=== PATIENT | male | born 1950 | race Caucasian/White ===

== ENCOUNTER 2017-06-07 08:57 | Day surgery (SDC) | payer MEDICARE ==
[~2017-06-07] VITALS: Ht 182.9 cm; Wt 109.5 kg
[~2017-06-07 08:57] MED LIST: ASPI-84 PO; ASPI-999 PO; ATEN25TA; CYCL10TA9 PO; ENAL10TA PO; ENXP40I.4 SC; HYDR-1231 PO; HYDR-3454 PO; HYDR1TAB PO; IBUP-15; NEBI2.5T5 PO; NEBI5TAB8 PO; PANT20TA2; PANT40TA PO; PANT40TA3 PO; PNT40TEC PO; PRED20TA PO; SIMV40TA4 PO; WARF-48 PO; WARF5TAB6 PO; WARF7.5T; WRF5T; WRF5T PO
[2017-06-07] MEDS ORDERED: DEXAMETHASONE 10 MG/ML (DECADRON) 1 ML VIAL ONE (08:59)
[2017-06-07] MEDS ORDERED: BUPIVACAINE 0.5% 30 ML (SENSORCAINE) VIAL ONE (08:59)
[2017-06-07] MEDS ORDERED: LIDOCAINE 1% INJ 20 ML (XYLOCAINE) VIAL ONE (08:59)
[2017-06-07] MEDS ORDERED: MIDAZOLAM 2 MG/2 ML (VERSED) VIAL ONE (09:07)
[2017-06-07] MEDS ORDERED: ONDANSETRON 4 MG/2 ML (SDV) Z0FRAN ONE (09:07)
[2017-06-07] MEDS ORDERED: LIDOCAINE JELLY 2% (XYLOCAINE) 5 ML TUBE ONE (09:07)
[2017-06-07] MEDS ORDERED: LIDOCAINE PF 2% 5 ML (XYLOCAINE) VIAL ONE (09:07)
[2017-06-07] MEDS ORDERED: LACTATED RINGERS 0 ML IV ONE (09:07)
[2017-06-07] MEDS ORDERED: proPOfol 200 MG/20 ML (DIPRIVAN) VIAL IV ONE (09:07)
[2017-06-07] MEDS ORDERED: ROCURONIUM 50 MG/5 ML (ZEMURON) VIAL IV ONE (09:07)
[2017-06-07 09:15] VITALS: BP 162/87
[2017-06-07] MEDS: LACTATED RINGERS 1,000 ML IV PRN ×2 (09:15→10:10)
[2017-06-07] MEDS ORDERED: ceFAZolin 1 GM/NS 50 ML IVPB IV ONE ×2 (09:15)
[2017-06-07] MEDS ORDERED: CATHETER FLUSH 10 ML SYR IV PRN (09:15)
[2017-06-07] MEDS ORDERED: fentaNYL INJECTION 100 MCG/2 ML AMP ONE (09:33)
[2017-06-07 09:40] LABS: INR 1.2 (0.8-1.4); PROTHROMBIN TIME PATIENT 14.9 SEC (12.2-14.7)
--- NOTE | 2017-06-07 09:41 | Progress Note-Pre Operative ---
Pre-Operative Progress Note H&P Reviewed The H&P was reviewed, patient examined and no changes noted. Date Seen by Provider: Jun 07, 2017 Time Seen by Provider: 09:30 Date H&P Reviewed: Jun 07, 2017 Time H&P Reviewed: 09:31 Pre-Operative Diagnosis: Soft tissue lesion right hallux ROMMEL KOCH DPM Jun 07, 2017 9:41 am
[2017-06-07] MEDS ORDERED: diphenhydrAMINE 50 MG/ML INJ (BENADRYL) ONE (10:02)
[2017-06-07] MEDS ORDERED: LACTATED RINGERS 1,000 ML IV SCH (10:33)
--- NOTE | 2017-06-07 10:33 | Progress Note-Post Operative ---
Post-Operative Progess Note Surgeon (s)/Netbackup Administrator (s) Surgeon ROMMEL KOCH DPM Netbackup Administrator: None Pre-Operative Diagnosis Soft tissue lesion right hallux Post-Operative Diagnosis Same, likely Gout Procedure & Operative Findings Date of Procedure 06/07/17 Procedure Performed/Findings Excision of soft tissue lesion right Anesthesia Type MAC Estimated Blood Loss Estimated blood loss (mL): minimal Specimens/Packing Specimens Removed Soft tissue lesion right hallux ROMMEL KOCH DPM Jun 07, 2017 10:33 am
[2017-06-07] MEDS ORDERED: HYDR-3812 PO (10:36)
[2017-06-07] MEDS ORDERED: morphine INJ 10 MG/ML 1ML (SYR OR VIAL) IVP PRN (10:45)
[2017-06-07] MEDS ORDERED: MEPERIDINE (DEMEROL) INJ 50 MG/ML IVP PRN (10:45)
[2017-06-07] MEDS ORDERED: ONDANSETRON 4 MG/2 ML (SDV) Z0FRAN IVP PRN (10:45)
[2017-06-07] MEDS ORDERED: HYDROcodone/APAP 5 MG/325 MG (LORTAB) TAB PO PRN (10:45)
[2017-06-07 11:05] VITALS: BP 122/77
[2017-06-07 11:35] VITALS: BP 127/76
[2017-06-07 12:05] VITALS: BP 127/73
[2017-06-07 12:40] VITALS: BP 127/73
--- NOTE | 2017-06-07 23:15 | OPERATIVE REPORT ---
DATE OF SERVICE: SURGEON: Michelle Song DPM. PREOPERATIVE DIAGNOSIS: Soft tissue lesion, right hallux. POSTOPERATIVE DIAGNOSIS: Soft tissue lesion, right hallux. PROCEDURE: Excision of soft tissue lesion, right hallux. WOUND CLASS: Clean. ANESTHESIA: Monitored anesthesia care. HEMOSTASIS: Pneumatic ankle tourniquet at 250 mmHg. INDICATION: This is a 67-year-old male who presents with a lesion to the right great toe, had a fairly rapid onset. No history of trauma. X-rays indicated osseous changes to the medial aspect of the right hallux interphalangeal joint. The patient is agreeable to a surgical biopsy of the right hallux soft tissue lesion after risks and complications were discussed at length. No guarantees were extended, the patient is willing to proceed. PROCEDURE: The patient was brought back to the operating table, placed in secure supine position. Anesthesia was achieved utilizing 10 mL of 1:1 mixture of 1% Xylocaine, 0.5% Marcaine injected in a digital block. Pneumatic ankle tourniquet was placed on the right lower extremity over several layers of padding. The right foot was then prepped and draped in a normal sterile manner. Appropriate timeout was performed prior to any preparations. Attention was then directed to the dorsal aspect of the right hallux where a 2.5 cm longitudinal linear incision was created to the dorsal aspect of the interphalangeal joint. The incision was deepened in the same plane with great care to identify and retract all vital neurovascular structures. When necessary, blood vessels were cauterized as encountered. Blunt and sharp dissection was carried out to the soft tissue lesion, which measured approximately 1.5 x 2 cm. 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 The lesion extended down to the interphalangeal joint. The lesion was sent for gross and microscopic evaluation. The wound was curetted of all tophaceous material as much as possible, which include the inferior aspect of the extensor hallucis longus. The wound was flushed with copious amounts of normal saline and closure was then performed in layers. Deep closure was performed with 4-0 Vicryl and skin closure was performed with 4-0 Prolene in a horizontal mattress type stitch. Postoperative injection consisted of 10 mg of dexamethasone at the interphalangeal joint area of the right hallux. Postoperative dressing consisted of Betadine soaked Adaptic, sterile 4 x 4, sterile Kerlix all secured with a Coban wrap. The patient tolerated the anesthesia and procedure well, was transported from the operating room to the recovery area with vital signs stable and vascular status intact to all digits of the right foot. The patient was given a prescription for Vicodin. He is to follow up in my office in 10 days' period of time. Job ID: [id number] DocumentID: [id number] Dictated Date: 06/07/2017 10:41:36 Pipe Stripper Date: 06/07/2017 23:14:12 Dictated By: ANDRES HELM
== END 2017-06-07 12:45 | disposition home or self-care (01) ==
LOC: SDC 08:57
PROVIDERS: ATTEND Podiatrist Foot & Ankle Surgery
DX: M1A.9XX1 Chronic gout, unspecified, with tophus (tophi) (principal); I10 Essential (primary) hypertension; Z79.899 Other long term (current) drug therapy; E78.5 Hyperlipidemia, unspecified; Z87.891 Personal history of nicotine dependence; Z79.01 Long term (current) use of anticoagulants; I25.10 Atherosclerotic heart disease of native coronary artery without angina pectoris; Z86.718 Personal history of other venous thrombosis and embolism; K21.9 Gastro-esophageal reflux disease without esophagitis; Z95.5 Presence of coronary angioplasty implant and graft
CPT/HCPCS: 36415; 85610; 85730

== ENCOUNTER → 2017-09-20 | Outpatient (CLI) | payer MEDICARE ==
[~2017-09-20] MED LIST changes: +ACHD5005 PO
--- NOTE | 2017-09-20 10:20 | Diagnostic Imaging Report ---
INDICATION: Chronic kidney disease stage III. FINDINGS: The right kidney measures 9.4 x 5.2 x 5.7 cm and the left kidney measures 9.7 x 6.0 x 4.8 cm. The cortical thickness and echogenicity is normal. No discrete renal mass, renal calculi or hydronephrosis is identified. The urinary bladder is unremarkable. The right ureteral jet is unremarkable. The left ureteral jet was not visualized. IMPRESSION: Unremarkable renal ultrasound. Dictated by: Dictated on workstation # [id number]
== END ==
LOC: RAD 08:46
PROVIDERS: ATTEND Internal Medicine Nephrology
DX: I12.9 Hypertensive chronic kidney disease with stage 1 through stage 4 chronic kidney disease, or unspecified chronic kidney disease (principal); N18.3 Chronic kidney disease, stage 3 (moderate)
CPT/HCPCS: 76770

== ENCOUNTER → 2017-10-25 | Outpatient (CLI) | payer MEDICARE ==
--- NOTE | 2017-10-25 09:58 | Diagnostic Imaging Report ---
PROCEDURE: US Thyroid. TECHNIQUE: Multiple real-time grayscale images were obtained of the thyroid in various projections. INDICATION: Followup thyroid nodule. COMPARISON: 04/27/2016. FINDINGS: Right thyroid lobe: The right thyroid lobe measures 5.9 x 2.7 x 2.2 cm. It demonstrates diffuse homogeneous echogenicity. There is a tiny anechoic cyst in the inferior right thyroid lobe measuring up to 0.4 cm that is stable. Isthmus: The thyroid isthmus is normal in echogenicity and thickness measuring 0.3 cm. Left thyroid lobe: The left thyroid lobe measures 6.1 x 2.4 x 1.6 cm. It demonstrates diffuse homogeneous echogenicity. A mixed isoechoic and hypoechoic nodule measuring approximately 1.2 x 1.0 cm (previously 1.5 x 1.2 cm). The margins remain ill-defined which is a nonaggressive feature. No internal vascularity or calcifications. IMPRESSION: Stable small solid nodule in the lower pole of the left thyroid lobe, which has no imaging features to indicate malignancy. Dictated by: Dictated on workstation # [id number]
== END ==
LOC: RAD 08:03
PROVIDERS: ATTEND Internal Medicine Endocrinology, Diabetes & Metabolism
DX: E04.2 Nontoxic multinodular goiter (principal)
CPT/HCPCS: 76536

== ENCOUNTER 2018-04-14 13:08 | Outpatient (RCR) | payer MEDICARE | END 2018-04-24 | disposition home or self-care (01) | LOC: CARD 13:08 | PROVIDERS: ATTEND Family Medicine | DX: R07.89 Other chest pain (principal); R42 Dizziness and giddiness; I10 Essential (primary) hypertension; I34.0 Nonrheumatic mitral (valve) insufficiency | CPT/HCPCS: 93005; 93225; 93226; 93306 ==

== ENCOUNTER 2018-04-22 13:00 | Outpatient (RCR) | payer MEDICARE | END 2018-04-24 | disposition home or self-care (01) | LOC: CARD 13:00 | PROVIDERS: ATTEND Family Medicine | DX: R07.89 Other chest pain (principal); R42 Dizziness and giddiness; I10 Essential (primary) hypertension | CPT/HCPCS: 93270 ==

== ENCOUNTER 2018-04-28 10:16 | Outpatient (CLI) | payer MEDICARE ==
[2018-04-28] VITALS (19 sets, daily range): BP systolic 102–146; BP diastolic 40–88
[~2018-04-28] VITALS: Ht 182.9 cm; Wt 107.0 kg
[~2018-04-28 10:16] MED LIST changes: +NS IV 1000 ML 1,000 ML ONE
[2018-04-28] MEDS ORDERED: NS IV 1000 ML 1,000 ML IV SCH (10:45)
--- NOTE | 2018-04-28 13:31 | Cardiology Tilt Table Test ---
Cardiology-Tilt Table Test Tilt Table Test Date 04/28/[address] Daniel Baseline Vitals Vital Signs Date Time Temp Pulse Resp B/P (MAP) Pulse Ox O2 Delivery O2 Flow Rate FiO2 04/28/18 10:28 97.5 50 16 130/40 (70) 94 Room Air Vital Signs VS - Last 72 Hours, by Label 04/28/18 04/28/18 04/28/18 04/28/18 10:28 10:38 10:39 10:40 Temp 97.5 Pulse 50 56 54 55 Resp 16 16 16 16 B/P (MAP) 130/40 (70) 146/88 (107) 135/81 (99) 133/77 (95) Pulse Ox 94 94 94 94 O2 Delivery Room Air Room Air Room Air Room Air 04/28/18 04/28/18 04/28/18 04/28/18 10:43 10:44 10:45 10:48 Pulse 56 52 53 51 Resp 16 16 16 16 B/P (MAP) 142/72 (95) 133/77 (95) 121/71 (88) 125/68 (87) Pulse Ox 94 94 94 94 O2 Delivery Room Air Room Air Room Air Room Air 04/28/18 04/28/18 04/28/18 04/28/18 10:51 10:52 10:54 10:56 Pulse 49 54 59 63 Resp 16 16 16 16 B/P (MAP) 122/69 (86) 114/66 (82) 124/65 (84) 102/70 (81) Pulse Ox 94 94 94 94 O2 Delivery Room Air Room Air Room Air Room Air 04/28/18 04/28/18 04/28/18 04/28/18 10:58 11:00 11:02 11:03 Pulse 68 60 58 61 Resp 16 16 16 16 B/P (MAP) 107/67 (80) 117/70 (86) 113/70 (84) 105/67 (80) Pulse Ox 94 94 94 94 O2 Delivery Room Air Room Air Room Air Room Air 04/28/18 04/28/18 04/28/18 11:04 11:07 11:12 Pulse 60 49 49 Resp 16 16 16 B/P (MAP) 110/69 (83) 118/63 (81) 118/63 Pulse Ox 94 94 94 O2 Delivery Room Air Room Air Room Air Patient was tilted to 75 degrees for [10] minutes, then returned to supine position, given [2] sublingual nitroglycerin tablets, then tilted again to 75 degrees for [15] minutes. During test, patient was: asymptomatic In Conclusion;: Negative Tilt Table Test Starr PAGE MD Apr 28, 2018 1:31 pm
== END 2018-04-28 11:13 | disposition home or self-care (01) ==
LOC: CARD 10:16
PROVIDERS: ATTEND Internal Medicine Interventional Cardiology
DX: R42 Dizziness and giddiness (principal)
CPT/HCPCS: 93660

== ENCOUNTER 2018-05-16 13:00 | Outpatient (RCR) | payer MEDICARE ==
[~2018-05-16 13:00] MED LIST changes: -NS IV 1000 ML 1,000 ML ONE
== END 2018-07-27 | disposition home or self-care (01) ==
LOC: CARD 13:00
PROVIDERS: ATTEND Family Medicine
DX: R07.89 Other chest pain (principal); R42 Dizziness and giddiness; I10 Essential (primary) hypertension

== ENCOUNTER 2020-02-06 06:31 | Outpatient (RCR) | payer MEDICARE ==
[~2020-02-06 06:31] MED LIST changes: +SIMV40TA25 PO
== END 2020-02-07 14:41 | disposition home or self-care (01) ==
LOC: PREOP 06:31 → EDSTATUS 10:15 → PREOP 02-07 14:41
PROVIDERS: ATTEND Surgery
DX: Z01.818 Encounter for other preprocedural examination (principal)

== ENCOUNTER 2020-03-16 11:27 | Emergency (ER) | payer MEDICARE ==
[~2020-03-16] VITALS: Ht 182 cm; Wt 109.7 kg
--- NOTE | 2020-03-16 12:07 | ED Lower Extremity ---
General Chief Complaint: Lower Extremity Stated Complaint: L FOOT SWELLING Nursing Triage Note: PT PTRESENTS TO ED WITH COMPLAINTS OF L FOOT REDNESS, SELLING, HEAT, AND PAIN X 1 WEEK THAT HAS PROGRESSIVELY GOTTEN WORSE. PT REPORTS HE HAS FACTOR 5 LIDEN AND HX OF 'S Nursing Sepsis Screen: No Definite Risk Source: patient Exam Limitations: no limitations History of Present Illness Date Seen by Provider: Mar 16, 2020 Time Seen by Provider: 11:45 Initial Comments Patient presents to ER by private conveyance with chief complaint last couple days developing some pain in his left foot at the base of his first digit with redness swelling. He has a history of gout. He also has a history of factor V Leiden on warfarin that he gets checked regularly by Dr. Daniel. He says the last time he checked it was normal. He is not having any fevers chills shortness of breath cough or hemoptysis. The patient has been using Tylenol and ibuprofen for pain control. The reason he started tumeric and a phosphorus supplement. Allergies and Home Medications Allergies Coded Allergies: No Known Drug Allergies (Unverified , 06/02/17) Home Medications Aspirin 81 Mg Tab.chew, 81 MG PO DAILY, (Reported) Enalapril Maleate 10 Mg Tablet, 10 MG PO DAILY, (Reported) Nebivolol HCl 2.5 Mg Tablet, 2.5 MG PO DAILY, (Reported) Pantoprazole Sodium 40 Mg Tablet.dr, 40 MG PO DAILY, (Reported) Simvastatin 40 Mg Tablet, 40 MG PO DAILY, (Reported) Warfarin Sodium 5 Mg Tablet, 5 MG PO DAILY EXCEPT , (Reported) Warfarin Sodium 5 Mg Tablet, 2.5 MG PO THURSDAYS, (Reported) Patient Home Medication List Home Medication List Reviewed: Yes Review of Systems Constitutional: No chills, No diaphoresis EENTM: No ear discharge, No ear pain Respiratory: No cough, No hemoptysis, No short of breath Cardiovascular: No chest pain, No edema, No palpitations Gastrointestinal: No abdominal pain, No nausea, No vomiting Genitourinary: No discharge, No dysuria Musculoskeletal: see HPI; No back pain; joint pain All Other Systems Reviewed Negative Unless Noted: Yes Past Jjrkuyh-Dlnzsj-Ozcrsp Hx Patient Social History Alcohol Use: Denies Use Recreational Drug Use: No Type Used: Cigarettes Former Smoker, Quit: Jun 02, 2012 Recent Foreign Travel: No Contact w/Someone Who Travel: No Recent Infectious Disease Expo: No Recent Hopitalizations: No Physical Abuse: No Sexual Abuse: No Mistreated: No Fear: No Immunizations Up To Date Tetanus Booster (TDap): Unknown Seasonal Allergies Seasonal Allergies: No Past Medical History Surgeries: Yes (LEFT ROT.CUFF,APPY W/HERNIA REPAIR, stents, INGUINAL HERNIA) Abdominal, Appendectomy, Coronary Stent, Orthopedic Respiratory: Yes Pulmonary Embolism Cardiac: Yes (HEART STENT, ANGINA) Coronary Artery Disease, High Cholesterol, Hypertension Neurological: No Reproductive Disorders: No Sexually Transmitted Disease: No HIV/AIDS: No Gastrointestinal: Yes (HX BOWEL OBSTRUCTION) Gastroesophageal Reflux Musculoskeletal: No Endocrine: Yes (MONITORING THYROID LEVELS-HAS BEEN HIGH) Loss of Vision: Bilateral Hearing Impairment: Denies Cancer: No Psychosocial: No Integumentary: No Blood Disorders: Yes (YES-FAMILY ALL HAS FACTOR ? AND BLOOD CLOTS) Adverse Reaction/Blood Tranf: No Family Medical History Cardiovascular disease 19 MOTHER (HEART VALVE) DVT G8 BROTHER G8 BROTHER G8 BROTHER POR BLOOD FLOW IN LEGS G8 SISTER G8 SISTER Parkinson's disease 19 FATHER Respiratory disorder 19 FATHER (LUNG CANCER) Physical Exam Vital Signs Vital Signs - First Documented 03/16/20 11:46 Temp 36.1 Pulse 70 Resp 18 B/P (MAP) 162/112 (129) Pulse Ox 96 Capillary Refill : Less Than 3 Seconds Height, Weight, BMI Height: 6'0.00" Weight: 236lbs. 0.0oz. [id number]; 33.00 BMI Method:Stated General Appearance: WD/WN, no apparent distress HEENT: PERRL/EOMI, pharynx normal Neck: full range of motion, normal inspection Cardiovascular: normal peripheral pulses, regular rate, rhythm Respiratory: no respiratory distress, no accessory muscle use Ankles: bilateral ankle non-tender, bilateral ankle normal inspection, bilateral ankle normal range of motion, bilateral ankle no evidence of injury Feet: right foot non-tender, right foot normal inspection; bilateral foot normal range of motion, bilateral foot no evidence of injury; left foot bone tenderness (first proximal metacarpal phalangeal joint is warm, erythematous, tender, swollen), left foot pain, left foot soft tissue tenderness, left foot swelling Neurologic/Tendon: normal sensation, normal motor functions, normal tendon functions Neurologic/Psychiatric: no motor/sensory deficits, alert, normal mood/affect, oriented x 3 Skin: warm/dry, other Progress/Results/Core Measures Results/Orders Lab Results Laboratory Tests Test 03/16/20 12:00 Range/Units White Blood Count 8.9 4.3-11.0 10^3/uL Red Blood Count 4.34 L 4.35-5.85 10^6/uL Hemoglobin 14.4 13.3-17.7 G/DL Hematocrit 42 40-54 % Mean Corpuscular Volume 96 80-99 FL Mean Corpuscular Hemoglobin 33 25-34 PG Mean Corpuscular Hemoglobin Concent 35 32-36 G/DL Red Cell Distribution Width 12.3 10.0-14.5 % Platelet Count 192 130-400 10^3/uL Mean Platelet Volume 10.0 7.4-10.4 FL Neutrophils (%) (Auto) 52 42-75 % Lymphocytes (%) (Auto) 34 12-44 % Monocytes (%) (Auto) 9 0-12 % Eosinophils (%) (Auto) 5 0-10 % Basophils (%) (Auto) 1 0-10 % Neutrophils # (Auto) 4.7 1.8-7.8 X 10^3 Lymphocytes # (Auto) 3.0 1.0-4.0 X 10^3 Monocytes # (Auto) 0.8 0.0-1.0 X 10^3 Eosinophils # (Auto) 0.4 H 0.0-0.3 10^3/uL Basophils # (Auto) 0.1 0.0-0.1 10^3/uL Prothrombin Time 26.1 H 12.2-14.7 SEC INR Comment 2.4 H 0.8-1.4 Sodium Level 139 135-145 MMOL/L Potassium Level 4.8 3.6-5.0 MMOL/L Chloride Level 105 98-107 MMOL/L Carbon Dioxide Level 26 21-32 MMOL/L Anion Gap 8 5-14 MMOL/L Blood Urea Nitrogen 27 H 7-18 MG/DL Creatinine 1.67 H 0.60-1.30 MG/DL Estimat Glomerular Filtration Rate 41 BUN/Creatinine Ratio 16 Glucose Level 90 70-105 MG/DL Uric Acid 6.4 2.6-7.2 MG/DL Calcium Level 9.2 8.5-10.1 MG/DL Corrected Calcium 9.2 8.5-10.1 MG/DL Total Bilirubin 0.6 0.1-1.0 MG/DL Aspartate Amino Transf (AST/SGOT) 28 5-34 U/L Alanine Aminotransferase (ALT/SGPT) 37 0-55 U/L Alkaline Phosphatase 60 40-136 U/L Total Protein 7.0 6.4-8.2 GM/DL Albumin 4.0 3.2-4.5 GM/DL My Orders Orders - TONY VO Hydrocodone/Apap 5/325 Tablet (Lortab 5 (03/16/20 12:15) Uric Acid (03/16/20 12:01) Cbc With Automated Diff (03/16/20 12:01) Comprehensive Metabolic Panel (03/16/20 12:01) Protime With Inr (03/16/20 12:01) Medications Given in ED Current Medications Medications Dose Ordered Sig/Philip Route Start Time Stop Time Status Last Admin Dose Admin Acetaminophen/ Hydrocodone Bitart 1 tab ONCE ONCE PO 03/16/20 12:15 03/16/20 12:16 DC 03/16/20 12:05 1 TAB Vital Signs/I&O 03/16/20 11:46 Temp 36.1 Pulse 70 Resp 18 B/P (MAP) 162/112 (129) Pulse Ox 96 Blood Pressure Mean: 129 Progress Progress Note #1: Time: 12:12 Progress Note Murdock to be a gout inflammation. Plan to use opiates, limited NSAIDs. We'll give the patient some hydrocodone. Much less likely to be a DVT in his foot despite factor V Leiden if his warfarin is therapeutic. We did review the interactions and found that turmeric can potentiate blood thinner such as warfarin. If he had a DVT then we would make sure his warfarin is therapeutic. If he is not the rapeutic then we would make sure his warfarin is therapeutic. The plan does not change so a d-dimer is of very little diagnostic value. Progress Note #2: Time: 13:15 Progress Note The pains only marginally improved with hydrocodone so we discussed options and decided to try Percocet. PT/INR is therapeutic. Rice therapy and follow-up with primary care as necessary for gout inflammation. Departure Impression Primary Impression: Gout attack Qualified Codes: M10.9 - Gout, unspecified Disposition: 01 HOME, SELF-CARE Condition: Stable Departure-Patient Inst. Decision time for Depature: 13:16 Referrals: JUSTIN DANIEL MD (PCP/Family) Primary Care Physician Patient Instructions: Gout (DC), Low Purine Diet Add. Discharge Instructions: Drink plenty of fluids. Motrin 400 mg every 8 hours as necessary for pain. Tylenol 650 mg every 8 hours as necessary for pain. Percocet one tablet every 4 hours as necessary for breakthrough pain. Elevate your foot above the level of your heart when not in use. Heat and topical creams such as capsaicin oil may be helpful. Follow-up with primary care as necessary. All discharge instructions reviewed with patient and/or family. Voiced understanding. Scripts Oxycodone HCl/Acetaminophen (Percocet 5-325 mg Tablet) 1 Each Tablet 1-2 TAB PO Q4H PRN for PAIN-BREAKTHROUGH MDD 6 TABS for 7 Days, #30 TAB 0 Refills Prov: TONY VO 03/16/20 TONY VO Mar 16, 2020 12:07
[2020-03-16 12:11] LABS: BASOPHILS # (AUTO) 0.1 10^3/uL (0.0-0.1); BASOPHILS % (AUTO) 1 % (0-10); EOSINOPHILS # (AUTO) 0.4 10^3/uL (0.0-0.3); EOSINOPHILS % (AUTO) 5 % (0-10); HEMATOCRIT 42 % (40-54); HEMOGLOBIN 14.4 G/DL (13.3-17.7); LYMPHOCYTES % (AUTO) 34 % (12-44); MEAN CORPUSCULAR HEMOGLOBIN 33 PG (25-34); MEAN CORPUSCULAR HGB CONC 35 G/DL (32-36); MEAN CORPUSCULAR VOLUME 96 FL (80-99); MONOCYTES # (AUTO) 0.8 X 10^3 (0.0-1.0); MONOCYTES % (AUTO) 9 % (0-12); NEUTROPHILS # (AUTO) 4.7 X 10^3 (1.8-7.8); NEUTROPHILS % (AUTO) 52 % (42-75); PLATELET COUNT 192 10^3/uL (130-400); RED CELL DISTRIBUTION WIDTH 12.3 % (10.0-14.5); WHITE BLOOD COUNT 8.9 10^3/uL (4.3-11.0)
[2020-03-16] MEDS ORDERED: HYDROcodone/APAP 5 MG/325 MG (LORTAB) TAB PO ONE (12:15)
[2020-03-16 12:26] LABS: INR 2.4 (0.8-1.4); PROTHROMBIN TIME PATIENT 26.1 SEC (12.2-14.7)
[2020-03-16 12:35] LABS: BILIRUBIN,TOTAL 0.6 MG/DL (0.1-1.0); CALCIUM 9.2 MG/DL (8.5-10.1); CREATININE SERUM 1.67 MG/DL (0.60-1.30); POTASSIUM 4.8 MMOL/L (3.6-5.0); URIC ACID 6.4 MG/DL (2.6-7.2)
[2020-03-16] MEDS ORDERED: OXYC1TAB87 PO (13:19)
[2020-03-16 13:29] VITALS: BP 148/97
== END 2020-03-16 13:29 | disposition home or self-care (01) ==
LOC: EDUNIT# 11:27 → ER 11:28
DX: M10.9 Gout, unspecified (principal); I10 Essential (primary) hypertension; I25.10 Atherosclerotic heart disease of native coronary artery without angina pectoris; E78.00 Pure hypercholesterolemia, unspecified; K21.9 Gastro-esophageal reflux disease without esophagitis; Z95.5 Presence of coronary angioplasty implant and graft; Z82.49 Family history of ischemic heart disease and other diseases of the circulatory system; Z79.01 Long term (current) use of anticoagulants; Z79.82 Long term (current) use of aspirin; Z87.891 Personal history of nicotine dependence; Z86.711 Personal history of pulmonary embolism
CPT/HCPCS: 36415; 80053; 84550; 85025; 85610; 99283

== ENCOUNTER → 2020-04-15 | Outpatient (CLI) | payer MEDICARE ==
[~2020-04-15] MED LIST changes: +ENAL10TA16 PO; +OXYC1TAB87 PO; -PANT40TA3 PO; +PANT40TA52 PO
--- NOTE | 2020-04-15 10:14 | Diagnostic Imaging Report ---
PROCEDURE: US Thyroid. TECHNIQUE: Multiple Real-time grayscale images were obtained of the thyroid in various projections. INDICATION: Thyroid nodules, followup. COMPARISON: Correlation is made with the prior exam from 10/25/2017. FINDINGS: The right lobe of the thyroid measures 5.6 x 2.2 x 2.1 cm and the left lobe measures 5.1 x 2.0 x 1.7 cm. The isthmus is 5 mm in thickness. The right lobe appears fairly homogeneous in echotexture. A tiny cyst in the right lobe is again noted measuring approximately 5 mm x 3 mm. An ill-defined nodule in the lower pole of the left lobe measures 1.3 x 1.0 x 0.9 cm, stable. No new mass is detected. IMPRESSION: Stable bilateral thyroid nodules when compared with the examination from 10/25/2017. Dictated by: Dictated on workstation # [id number]
== END ==
LOC: RAD 09:00
PROVIDERS: ATTEND Internal Medicine Endocrinology, Diabetes & Metabolism
DX: E04.2 Nontoxic multinodular goiter (principal)
CPT/HCPCS: 76536

== ENCOUNTER → 2020-04-22 | Outpatient (CLI) | payer MEDICARE | LOC: LABNPT 06:33 | PROVIDERS: ATTEND Family Medicine | DX: R05 Cough (principal); R50.9 Fever, unspecified; R06.00 Dyspnea, unspecified; Z20.828 Contact with and (suspected) exposure to other viral communicable diseases | CPT/HCPCS: 87635 ==

== ENCOUNTER → 2020-11-12 | Outpatient (CLI) | payer MEDICARE ==
--- NOTE | 2020-11-12 09:40 | Diagnostic Imaging Report ---
INDICATION: Neck pain and bilateral extremity pain FINDINGS: There is degenerative changes to the discs, endplates and facets throughout the cervical spine but most severe at the C4-C5 and C5-C6 as well as C6-C7 levels. Prevertebral space appeared normal and no fracture or malalignment is identified. IMPRESSION: 1. Degenerative changes throughout the cervical spine progressively severe as we moved caudally. Alignment within normal limits and no acute appearing abnormality apparent. 2. In light of the severity of degenerative disease, underlying stenosis in this patient could not be excluded and if neuropathy is present or is otherwise indicated, follow-up with MRI may be of utility. Dictated by: Dictated on workstation # [id number]
== END ==
LOC: CARD 09:03
PROVIDERS: ATTEND Nurse Practitioner Family
DX: M47.812 Spondylosis without myelopathy or radiculopathy, cervical region (principal)
CPT/HCPCS: 72040; 93005

== ENCOUNTER → 2020-11-15 | Outpatient (CLI) | payer MEDICARE ==
--- NOTE | 2020-11-15 09:37 | Diagnostic Imaging Report ---
PROCEDURE: MR imaging cervical spine without contrast. TECHNIQUE: Multiplanar, multisequence MR imaging of the cervical spine was performed without contrast. INDICATION: Neck pain radiating into bilateral upper extremities with numbness. Worse in right arm. COMPARISON: Cervical spine radiographs 11/12/2020. FINDINGS: Normal alignment. Vertebral body heights preserved. Moderate diffuse degenerative endplate changes. Bone marrow signal is otherwise unremarkable. No abnormal signal in the cervical spinal cord. The visualized paravertebral soft tissues are unremarkable. C2-C3: No spinal canal or neural foraminal narrowing. C3-C4: Central disc protrusion results in moderate spinal canal stenosis. Facet arthropathy also contributes to severe bilateral neural foraminal narrowing. C4-C5: Annular disc bulge results in mild spinal canal stenosis. Facet arthropathy contributes to severe right and moderate left neural foraminal narrowing. C5-C6: Disc osteophyte complex results in mild spinal canal narrowing. Uncovertebral and facet arthropathy result in moderate to severe bilateral neural foraminal narrowing. C6-C7: Disc protrusion and ligamentous hypertrophy result in moderate spinal canal stenosis. Moderate to severe bilateral neural foraminal narrowing. C7-T1: Normal. IMPRESSION: 1. Spondylotic changes result in moderate spinal canal stenosis at C3-C4 and C6-C7. 2. Diffuse high-grade neural foraminal narrowing detailed above level by level. 3. No abnormal signal in the cervical spinal cord. Dictated by: Dictated on workstation # [id number]
== END ==
LOC: RAD 08:29
PROVIDERS: ATTEND Family Medicine
DX: M47.812 Spondylosis without myelopathy or radiculopathy, cervical region (principal); M48.02 Spinal stenosis, cervical region; M50.21 Other cervical disc displacement, high cervical region
CPT/HCPCS: 72141

== ENCOUNTER 2021-02-27 14:23 | Outpatient (RCR) | payer MEDICARE | END 2021-03-02 | disposition home or self-care (01) | PROVIDERS: ATTEND Nurse Practitioner Family | DX: M48.02 Spinal stenosis, cervical region (principal) ==

== ENCOUNTER 2021-05-28 13:40 | Outpatient (RCR) | payer MEDICARE | END 2021-06-01 | disposition home or self-care (01) | PROVIDERS: ATTEND Nurse Practitioner Family | DX: M48.02 Spinal stenosis, cervical region (principal) ==

== ENCOUNTER 2021-06-11 13:49 | Outpatient (RCR) | payer MEDICARE | END 2021-07-25 | disposition home or self-care (01) | PROVIDERS: ATTEND Nurse Practitioner Family | DX: M48.02 Spinal stenosis, cervical region (principal) ==

== ENCOUNTER 2021-08-22 13:49 | Outpatient (RCR) | payer MEDICARE | END 2021-08-25 | disposition home or self-care (01) | PROVIDERS: ATTEND Family Medicine | DX: M54.2 Cervicalgia (principal) ==

== ENCOUNTER → 2021-08-26 | Outpatient (CLI) | payer MEDICARE ==
--- NOTE | 2021-08-26 15:50 | Diagnostic Imaging Report ---
INDICATION: Post COVID infection and cough. TIME OF EXAM: 3:42 PM CORRELATION is made with prior chest 06/27/2012. FINDINGS: The heart size is normal. The pulmonary vascularity is unremarkable. The lungs are clear. No infiltrate, effusion or pneumothorax is detected. IMPRESSION: No acute cardiopulmonary process is detected. Dictated by: Dictated on workstation # [id number]
== END ==
LOC: RAD 15:18
PROVIDERS: ATTEND Family Medicine
DX: R05.9 Cough, unspecified (principal); U09.9 Post COVID-19 condition, unspecified
CPT/HCPCS: 71046

== ENCOUNTER → 2021-09-17 | Outpatient (CLI) | payer MEDICARE ==
[~2021-09-17] MED LIST changes: +CATHETER FLUSH 10 ML SYR IV PRN
== END ==
LOC: CARD 10:56
PROVIDERS: ATTEND Internal Medicine Cardiovascular Disease
DX: I35.1 Nonrheumatic aortic (valve) insufficiency (principal); I10 Essential (primary) hypertension
CPT/HCPCS: 93306

== ENCOUNTER 2021-09-19 16:39 | Outpatient (RCR) | payer MEDICARE ==
[~2021-09-19 16:39] MED LIST changes: -CATHETER FLUSH 10 ML SYR IV PRN
== END 2021-09-22 | disposition home or self-care (01) ==
PROVIDERS: ATTEND Family Medicine
DX: M54.2 Cervicalgia (principal)

== ENCOUNTER → 2021-09-24 | Outpatient (CLI) | payer MEDICARE ==
[~2021-09-24] VITALS: Ht 182 cm; Wt 109.0 kg
[~2021-09-24] MED LIST changes: +CATHETER FLUSH 10 ML SYR IVP PRN
[2021-09-24 10:00] VITALS: BP 157/90
--- NOTE | 2021-09-24 16:18 | Cardiology Stress Test Report ---
Stress Test Report Date of Procedure/Referring: Date of Procedure: Sep 24, 2021 PCP Daniel Armendariz MD Admitting Physician Yamile Daniel MD Indications: HTN Baseline Heart Rate: 71 Baseline Blood Pressure: Blood Pressure Systolic: 157 Blood Pressure Diastolic: 90 Vital Signs Date Time Temp Pulse Resp B/P (MAP) Pulse Ox O2 Delivery O2 Flow Rate FiO2 09/24/21 10:00 71 157/90 (112) Baseline Vital Signs Vital Signs Date Time Temp Pulse Resp B/P (MAP) Pulse Ox O2 Delivery O2 Flow Rate FiO2 09/24/21 10:00 71 157/90 (112) Baseline EKG: Baseline EKG: NSR Summary: After explaining the procedure and details to the patient, he signed the consent and was brought to the stress nuclear laboratory. Patient exercised on standard Bubba protocol, EKG, heart rate and blood pressure were monitored continuously, resting and stress doses of radio tracer were injected, imaging was acquired and reviewed in the short axis, horizontal long axis and vertical long axis views Patient was able to exercise for a total of 6 minutes on Bubba protocol, METs 7.3 Maximum heart rate 135 Maximum blood pressure 200/78 Stress EKG, Minimal nondiagnostic changes Recovery EKG, Return to baseline TID: 1.07 SSS: 5 SDS: 5 EF: 65 Conclusion: 1. Good exercise tolerance for a total of 6 minutes on standard Bubba protocol, 7.3 METS achieving 91% of maximal expected heart rate 2. Appropriate heart rate response to exercise with hypertensive response to exercise with peak blood pressure 200/78 return to baseline during recovery 3. Minimal nondiagnostic EKG changes with exercise with occasional PVCs noted return to baseline during recovery 4. Extracardiac attenuation with no significant ischemia or infarction on SPECT images 5. Normal left ventricular size, EF 65% DANIEL ARMENDARIZ MD Sep 24, 2021 16:18
== END ==
LOC: CARD 08:45
PROVIDERS: ATTEND Internal Medicine Cardiovascular Disease
DX: I10 Essential (primary) hypertension (principal)
CPT/HCPCS: 78452; 93017; A9502

== ENCOUNTER 2021-10-22 09:01 | Outpatient (RCR) | payer MEDICARE ==
[~2021-10-22 09:01] MED LIST changes: -CATHETER FLUSH 10 ML SYR IVP PRN
== END 2021-10-23 | disposition home or self-care (01) ==
PROVIDERS: ATTEND Family Medicine
DX: M54.2 Cervicalgia (principal)

== ENCOUNTER 2021-11-19 08:30 | Outpatient (RCR) | payer MEDICARE | END 2021-11-22 | disposition home or self-care (01) | PROVIDERS: ATTEND Family Medicine | DX: M54.2 Cervicalgia (principal) ==

== ENCOUNTER → 2021-12-01 | Outpatient (CLI) | payer MEDICARE ==
--- NOTE | 2021-12-01 10:01 | Diagnostic Imaging Report ---
PROCEDURE: MR imaging cervical spine without contrast. TECHNIQUE: Multiplanar, multisequence MR imaging of the cervical spine was performed without contrast. INDICATION: Stenosis of the cervical spine. COMPARISON: 11/15/2020 FINDINGS: Alignment of cervical spine is unchanged. No spondylolisthesis. No fracture or marrow replacing process. Cervical cord is normal in size and signal. No extradural fluid collection is appreciated. No cerebellar tonsillar ectopia. C2-C3: No spinal canal or neuroforaminal narrowing. C3-C4: Central disc protrusion with uncovertebral joint hypertrophy again causes moderate spinal canal stenosis. Severe bilateral neuroforaminal narrowing due to facet and uncovertebral joint hypertrophy. C4-C5: Unchanged mild spinal canal stenosis due to posterior disc bulge. Severe right and moderate left neuroforaminal narrowing is unchanged due to facet osteoarthritis. C5-C6: Central disc protrusion with uncovertebral joint hypertrophy causes unchanged mild spinal canal stenosis. Severe bilateral neuroforaminal narrowing is unchanged. C6-C7: Central disc protrusion and posterior ligament flavum hypertrophy result in moderate spinal canal stenosis. Moderate to severe bilateral neuroforaminal narrowing is unchanged due to uncovertebral joint hypertrophy and facet osteoarthritis. C7-T1: No spinal canal or foraminal narrowing. IMPRESSION: 1. Multilevel degenerative changes have not progressed since exam approximately 1 year prior. These degenerative changes remain greatest at C3-C4 and C6-C7 where there is moderate spinal canal stenosis. 2. Normal cervical cord signal without myelomalacia or myelitis. Dictated by: Dictated on workstation # [id number]
== END ==
LOC: RAD 08:00
PROVIDERS: ATTEND Family Medicine
DX: M47.812 Spondylosis without myelopathy or radiculopathy, cervical region (principal); M48.02 Spinal stenosis, cervical region
CPT/HCPCS: 72141

== ENCOUNTER 2021-12-16 11:20 | Outpatient (RCR) | payer MEDICARE | END 2021-12-23 | disposition home or self-care (01) | PROVIDERS: ATTEND Family Medicine | DX: M54.2 Cervicalgia (principal) ==

== ENCOUNTER 2022-01-19 08:26 | Outpatient (RCR) | payer MEDICARE | END 2022-01-22 | disposition still patient (30) | PROVIDERS: ATTEND Family Medicine | DX: M54.2 Cervicalgia (principal) ==

== ENCOUNTER 2022-02-09 09:44 | Outpatient (RCR) | payer MEDICARE | END 2022-02-22 | disposition home or self-care (01) | PROVIDERS: ATTEND Family Medicine | DX: M54.2 Cervicalgia (principal) ==

== ENCOUNTER 2022-03-23 08:26 | Outpatient (RCR) | payer MEDICARE | END 2022-03-25 | disposition home or self-care (01) | PROVIDERS: ATTEND Family Medicine | DX: M54.2 Cervicalgia (principal) ==

== ENCOUNTER 2022-04-06 08:30 | Outpatient (RCR) | payer MEDICARE | END 2022-04-24 | disposition home or self-care (01) | PROVIDERS: ATTEND Family Medicine | DX: M54.2 Cervicalgia (principal) ==

== ENCOUNTER → 2022-05-25 | Outpatient (RCR) | payer MEDICARE | END | disposition home or self-care (01) | PROVIDERS: ATTEND Family Medicine | DX: M54.2 Cervicalgia (principal) ==

== ENCOUNTER 2022-06-22 08:31 | Outpatient (RCR) | payer MEDICARE | END 2022-06-24 | disposition home or self-care (01) | PROVIDERS: ATTEND Family Medicine | DX: M54.2 Cervicalgia (principal) ==

== ENCOUNTER 2022-07-06 08:37 | Outpatient (RCR) | payer MEDICARE | END 2022-07-25 | disposition home or self-care (01) | PROVIDERS: ATTEND Family Medicine | DX: M54.2 Cervicalgia (principal) ==

== ENCOUNTER 2022-08-24 08:24 | Outpatient (RCR) | payer MEDICARE | END 2022-08-25 | disposition home or self-care (01) | PROVIDERS: ATTEND Family Medicine | DX: M54.2 Cervicalgia (principal) ==

== ENCOUNTER 2022-09-21 08:26 | Outpatient (RCR) | payer MEDICARE | END 2022-09-22 | disposition home or self-care (01) | PROVIDERS: ATTEND Family Medicine | DX: M54.2 Cervicalgia (principal) ==

== ENCOUNTER → 2022-09-27 | Outpatient (CLI) | payer MEDICARE ==
[2022-09-27 10:50] LABS: INR 1.5 (0.8-1.4); PROTHROMBIN TIME PATIENT 18.8 SEC (12.2-14.7)
== END ==
LOC: LAB 10:13
PROVIDERS: ATTEND Family Medicine
DX: I82.409 Acute embolism and thrombosis of unspecified deep veins of unspecified lower extremity (principal)
CPT/HCPCS: 36415; 85610

== ENCOUNTER 2022-10-19 08:18 | Outpatient (RCR) | payer MEDICARE ==
[~2022-10-19 08:18] MED LIST changes: -ENAL10TA16 PO; +ENLP10T PO
== END 2022-10-23 | disposition home or self-care (01) ==
PROVIDERS: ATTEND Family Medicine
DX: M54.2 Cervicalgia (principal)

== ENCOUNTER 2022-11-16 08:28 | Outpatient (RCR) | payer MEDICARE | END 2022-11-22 | disposition home or self-care (01) | PROVIDERS: ATTEND Family Medicine | DX: M54.2 Cervicalgia (principal) ==

== ENCOUNTER 2022-12-07 08:30 | Outpatient (RCR) | payer MEDICARE | END 2022-12-23 | disposition home or self-care (01) | PROVIDERS: ATTEND Family Medicine | DX: M54.2 Cervicalgia (principal) ==

== ENCOUNTER → 2022-12-30 | Outpatient (CLI) | payer MEDICARE ==
[~2022-12-30] MED LIST changes: +NEBI2.5T2 PO; -NEBI2.5T5 PO
== END ==
LOC: CARD 13:11
PROVIDERS: ATTEND Internal Medicine Cardiovascular Disease
DX: I11.9 Hypertensive heart disease without heart failure (principal)
CPT/HCPCS: 93306

== ENCOUNTER 2023-01-11 08:29 | Outpatient (RCR) | payer MEDICARE | END 2023-01-22 | disposition home or self-care (01) | PROVIDERS: ATTEND Family Medicine | DX: M54.2 Cervicalgia (principal) ==

== ENCOUNTER → 2023-02-22 | Outpatient (RCR) | payer MEDICARE | END | disposition home or self-care (01) | PROVIDERS: ATTEND Family Medicine | DX: M54.2 Cervicalgia (principal) ==

== ENCOUNTER 2023-05-13 08:05 | Outpatient (RCR) | payer MEDICARE | END 2023-05-25 | disposition home or self-care (01) | PROVIDERS: ATTEND Family Medicine | DX: M54.2 Cervicalgia (principal) ==

== ENCOUNTER 2023-06-15 16:16 | Outpatient (RCR) | payer MEDICARE | END 2023-06-24 | disposition home or self-care (01) | PROVIDERS: ATTEND Family Medicine | DX: M54.2 Cervicalgia (principal) ==